=== PATIENT | male | born 1990 | race Caucasian/White ===

== ENCOUNTER 2018-12-24 04:42 | Inpatient (IN) | payer OTHER ==
[~2018-12-24] VITALS: Ht 182.9 cm; Wt 90.7 kg
[2018-12-24] MEDS ORDERED: CONCERTA54 MG (04:54)
--- NOTE | 2018-12-24 04:59 | NUR ---
SE RECIBE PTE ALERTA Y ORIENTADO POR SERG. PTE INDICA PRESENTAR DOLOR EN CUADRANTE INFERIOR BEATRIS Y 7 EPISODIOS DE VOMITOS DESDE LAS 7:00PM.
--- NOTE | 2018-12-24 05:42 | NUR ---
EVALUA PTE. SE ORIENTA A PTE SOBRE TX MEDICO. PTE REFIERE COMPRENDER. SE REALIZAN MUESTRAS DE LABORATORIO BAJO MEDIDAS ASEPTICAS. SE ADMINISTRAN MEDICAMENTOS L[place] ORDEN MEDICA. ORDENA ESPERAR PARA BRINDARLE CONTRASTE ORAL A PTE PARA CT YA QUE PTE SE ENCUENTRA VOMITANDO.
--- NOTE | 2018-12-24 07:26 | NUR ---
SE RECIBE PTE MASCULINO DE 28 YRS ALERTA CONCIENTE ,Y TRANAUILO EN URIEL CON BARANDAS ELVADA. PTE CON IVF PATENTE Y SHIREEN .SE LE PREGUNTA A PTE SI SE ALIVIARON LAS NAUSEAS PARA COMENZAR A MARGO LOS CONTRASTES PARA ESTUDIODE CT SCAN DE ADOMEN . SE LE DA CONTRASTE A PTE Y SE ORIENTA SOBRE HERMELINDA TOMARLO. PTE VERBALIZA ENTENDER.
--- NOTE | 2018-12-24 15:28 | NUR ---
SE RECIBE PACIENTE DEL TURNO ANTERIOR ALERTA Y ORIENTADA X3, CON BUEN PATRON RESPIRATORIO Y SIGNOS VITALES ESTABLES, NO REFIERE DOLOR AL MOMENTO, CANALIZADO EN BRAZO BEATRIS CON ANGIO #18 BAJANDO UN 0.9NSS AT 200ML/HR. SE MALORIE TRANQUILO EN CAMA Y CON BARANDAS ELEVADAS Y FRENOS COLOCADOS.
== END 2018-12-26 11:12 | disposition home or self-care (01) | DRG 390 ==
LOC: ER 04:42 → SURH 16:48
PROVIDERS: ADMIT Surgery
PROC: BW21ZZZ Computerized Tomography (CT Scan) of Abdomen and Pelvis (ICD-10-PCS; principal; 2018-12-24)
DX: K56.690 Other partial intestinal obstruction (principal)